=== PATIENT | female | born 1975 | race Two or more races ===

== ENCOUNTER 2021-03-13 06:11 | Emergency (ER) | payer OTHER ==
[~2021-03-13] VITALS: Ht 165.1 cm; Wt 104.3 kg
[2021-03-13] MEDS ORDERED: TOPROL XL25 MG (06:37)
[2021-03-13] MEDS ORDERED: ENALAPRIL MALE2.5 MG (06:37)
[2021-03-13] MEDS ORDERED: URIN D.S. TABL1 EACH PO (15:30)
[2021-03-13] MEDS ORDERED: INTESTINEX680 M1 PO (15:30)
[2021-03-13] MEDS ORDERED: STONEX PO (15:30)
[2021-03-13] MEDS ORDERED: BACTRIM DS TAB1 EACH PO (15:30)
== END 2021-03-13 15:54 | disposition home or self-care (01) ==
LOC: ER 06:11
DX: N20.0 Calculus of kidney (principal); N39.0 Urinary tract infection, site not specified; R10.31 Right lower quadrant pain